=== PATIENT | male | born 1990 | race African-American/Black ===

== ENCOUNTER 2016-12-25 11:33 | Emergency (ER) | payer SELFPAY ==
[2016-12-25] MEDS ORDERED: FUL-GLO OP ONE (11:48)
[2016-12-25] MEDS ORDERED: TETRACAINE 0.5% OU STA (11:48)
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
[2016-12-25 11:52] VITALS: BP 140/84
[2016-12-25] MEDS ORDERED: MOTRIN PO ONE (13:06)
[2016-12-25] MEDS ORDERED: MOTRIN ONE (13:07)
[2016-12-25] MEDS ORDERED: BENADRYL PO ONE (14:00)
[2016-12-25] MEDS ORDERED: BOOSTRIX IM ONE (14:00)
[2016-12-25] MEDS ORDERED: NORCO 5/325 PO ONE (14:00)
[2016-12-25] MEDS ORDERED: NACL 0.9% 1000 ML 1,000 ML ONE (14:22)
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
== END 2016-12-25 15:38 | disposition home or self-care (01) ==
LOC: ED 11:33
DX: T26.02XA Burn of left eyelid and periocular area, initial encounter (principal); T26.01XA Burn of right eyelid and periocular area, initial encounter; Z88.8 Allergy status to other drugs, medicaments and biological substances; X13.1XXA Other contact with steam and other hot vapors, initial encounter; Y93.89 Activity, other specified; Y92.89 Other specified places as the place of occurrence of the external cause; Y99.8 Other external cause status
CPT/HCPCS: 90471; 90715; 99283; J7030